=== PATIENT | male | born 1995 | race Caucasian/White ===

== ENCOUNTER 2020-04-16 07:06 | Outpatient (CLI) | payer OTHER ==
--- NOTE | 2020-04-16 16:04 | MRI Report ---
PROCEDURE: Knee RT W/O INDICATIONS: RT KNEE INSTABILITY TECHNIQUE: Noncontrast sagittal PD fast spin echo and T2 fast spin echo with fat saturation, sagittal 3-D gradie nt sequence with fat saturation; coronal T1 spin echo and PD fast spin echo with fat saturation, and axial PD fast spin echo with fat saturation through the knee. COMPARISON: None. FINDINGS: Image quality: There is magnetic susceptibly artifact limiting evaluation. Menisci: There is a focal radial tear along the free edge in the anterior horn of the lateral meniscu s. The medial meniscus appears intact. The meniscal root ligaments also appear intact. Cruciate ligaments: There are postsurgical changes consistent with prior instruction of the anterior cruciate ligament. The ACL graft appears intact. There is a small amount of intermediate signal inten sity soft tissue anterior to the ACL graft suggestive of arthrofibrosis. The posterior cruciate ligam ent appears intact. Medial structures: The medial collateral ligament appears intact. The semimembranosus tendon insert ions appear intact. Visualized portions of the pes anserinus tendons appear normal. No abnormal bur rubina fluid. Lateral structures: The fibular collateral ligament and biceps femoris tendon appear intact. The po pliteal tendon and the meniscofemoral ligaments appear intact. Anterior structures: The quadriceps tendon appears intact. There is postsurgical change within the p atella tendon along the midline consistent with prior graft harvesting. The patella tendon appears gr ossly intact otherwise. There is slight lateral tilt of the patella. No femoral trochlear dysplasia o r ventral trochlear prominence. No edema in the infrapatellar fat pad. Bones and cartilage: No bone marrow contusions or fractures. The cartilage of the medial and latera l femorotibial compartments, as well as the patellofemoral compartment, appears preserved in thicknes s. Joint space: There is a small joint effusion. No Carnes?s cyst. Normal appearing synovial plicae ar e incidentally noted. IMPRESSION: 1. Focal radial tear within the anterior horn of the lateral meniscus. 2. Postsurgical changes consistent with prior ACL reconstruction with intact appearance of the graft. 3. Intermediate signal intensity soft tissue anterior to the graft suggestive of arthrofibrosis. 4. Small joint effusion. Reviewed by: Kevin Flores MD on 04/16/2020 4:03 PM PST Approved by: Kevin Flores MD on 04/16/2020 4:03 PM PST Station ID: [id number]
== END 2020-04-16 07:07 | disposition home or self-care (01) ==
LOC: DI 07:06
PROVIDERS: ATTEND Orthopaedic Surgery
DX: S83.281A Other tear of lateral meniscus, current injury, right knee, initial encounter (principal); R93.6 Abnormal findings on diagnostic imaging of limbs; M25.461 Effusion, right knee

== ENCOUNTER 2020-05-01 07:35 | Day surgery (SDC) | payer OTHER ==
[~2020-05-01 07:35] MED LIST: LIDOCAINE-MPF 2% 5 ML VIAL ONE; PROPOFOL 200 MG/20 ML VIAL IVP ONE
[2020-05-01] MEDS ORDERED: KETOROLAC 30 MG/ML VIAL ONE (07:36)
[2020-05-01] MEDS ORDERED: DEXAMETHASONE 4 MG/ML VIAL ONE (07:36)
[2020-05-01] MEDS ORDERED: ONDANSETRON 4 MG/2 ML VIAL ONE (07:36)
[2020-05-01] MEDS ORDERED: LIDOCAINE 2%-EPI 1:100000 20 ML MDV ONE (07:52)
[2020-05-01] MEDS ORDERED: EPINEPHrine 1 MG/ML AMP ONE (07:52)
[2020-05-01] MEDS ORDERED: BUPIVACAINE 0.25% PF 30 ML VIAL ONE (07:52)
[2020-05-01] MEDS ORDERED: ceFAZolin 2 GM/50 ML 2 GM/50 ML BAG IV ONE (08:00)
[2020-05-01] MEDS ORDERED: LACTATED RINGERS 1,000 ML IV ONE ×2 (08:09→10:52)
--- NOTE | 2020-05-01 08:22 | ANESTHESIA ---
Pre-Anesthesia VS, & Labs - Diagnosis Right Knee Instability - Procedure Right Knee Arthroscopy, Tibial Screw Removal, Vital Signs: Temp Pulse Resp BP Pulse Ox 36.2 C L 57 L 16 116/67 100 05/01/20 08:05 05/01/20 08:05 05/01/20 08:05 05/01/20 08:05 05/01/20 08:05 Height: 5 ft 5 in Weight (kg): 70.31 kg Body Mass Index: 25.7 BMI Classification: Overweight - NPO >8 hours Home Medications and Allergies Home Medications: Ambulatory Orders No Known Home Medications 04/25/20 No Known Home Medications 04/25/20 Allergies/Adverse Reactions: Allergies Allergy/AdvReac Type Severity Reaction Status Date / Time No Known Drug Allergies Allergy Verified 04/25/20 15:58 Anes History & Medical History - Anesthetic History Anesthesia Complications: reports: No previous complications Family history of Anesthesia Complications: Denies Family history of Malignant Hyperthermia: Denies - Medical History Cardiovascular: reports: None Pulmonary: reports: None Gastrointestinal: reports: None Urinary: reports: None Neuro: reports: None Musculoskeletal: reports: Other Endocrine/Autoimmune: reports: None Blood Disorders: reports: None Skin: reports: None Smoking Status: Never smoker Psychosocial: reports: No issues indicated History of Cancer?: No - Surgical History Eyes Ears Nose Throat (EENT): Tonsil/Adenoidectomy Orthopedic: ACL reconstruction Exam General: Alert, Oriented x3, Cooperative, No acute distress Dental: WNL Mouth Openin Fingerbreadth Neck Mobility: Normal Mallampati classification: II Thyromental Distance: 4-6 cm Respiratory: Lungs clear, Normal breath sounds, No respiratory distress, No accessory muscle use Cardiovascular: Regular rate, Normal S1, Normal S2, No murmurs Mental/Cognitive Status: Alert/Oriented X3, Normal for patient Cognitive Status: Within normal limits Plan Anesthesia Type: General Consent for Procedure(s) Verified and Reviewed: Yes Code Status: Attempt Resuscitation ASA classification: 1-Healthy patient Is this case an emergency?: No
[2020-05-01] MEDS ORDERED: METOCLOPRAMIDE 10 MG/2 ML VIAL IVP PRN (08:23)
[2020-05-01] MEDS ORDERED: ATROPINE ABBOJECT 1 MG/10 ML SYRINGE IVP PRN (08:23)
[2020-05-01] MEDS ORDERED: HYDROmorphone 0.5 MG/0.5 ML SYRINGE IVP PRN ×2 (08:23→08:36)
[2020-05-01] MEDS ORDERED: ePHEDrine 50 MG/ML VIAL IVP PRN (08:23)
[2020-05-01] MEDS ORDERED: NALOXONE 0.4 MG/ML VIAL IVP PRN (08:23)
[2020-05-01] MEDS ORDERED: ONDANSETRON 4 MG/2 ML VIAL IVP PRN ×2 (08:23→10:41)
[2020-05-01] MEDS ORDERED: fentaNYL 100 MCG/2 ML VIAL IVP PRN (08:23)
[2020-05-01] MEDS ORDERED: MORPHINE 2 MG/ML CARPUJECT IVP PRN (08:23)
[2020-05-01] MEDS ORDERED: MIDAZOLAM 2 MG/2 ML VIAL ONE (08:29)
[2020-05-01] MEDS ORDERED: fentaNYL 100 MCG/2 ML VIAL ONE ×2 (08:29→10:29)
[2020-05-01] MEDS ORDERED: LACTATED RINGERS 1,000 ML IV SCH (09:00)
[2020-05-01] MEDS ORDERED: BUPIVACAINE 0.25% PF 30 ML VIAL SUBQ ONE (09:08)
[2020-05-01] MEDS ORDERED: EPINEPHrine 1 MG/ML AMP IR ONE (09:08)
[2020-05-01] MEDS ORDERED: oxyCODONE 5 MG TABLET PO PRN (10:41)
--- NOTE | 2020-05-01 10:57 | OPERATIVE REPORT ---
Operative Report - Other Other Information/Narrative: Date of Surgery: 01 May 2020 Pre-Op Diagnosis: Right knee instability. right lateral meniscus tear Procedure: right knee scope with lateral meniscus debridement. Open tibia screw removal and bone grafting Postop Diagnosis: same Primary Surgeon: Angel Grace Secondary Surgeon: Yoan Angel Complications: None Tourniquet Time: 93 EBL: 30 Indication For Surgery: 25M with a prior ACLR with [facility]alta in 2013. He was doing well until 1 year ago when he started to have pain and instability. Workup revealed a lateral meniscus tear and an ACL graft that looked intact. The plan was to prepare the knee for a single stage ACL revision and treat the meniscus as needed. The risks, benefits, and alternatives were discussed. Risks include pain, bleeding, infection, damage to nearby structures and cartilage, lack of symptom relief, need for further surgery, DVT, PE, stroke, and . Written consent was obtained. Examination Under Anesthesia: ROM equal to the contralateral side. Stable dial at 30 & 90 degrees. Stable to varus and valgus stressing at 0 & 30 degrees. 2A Frances. Normal Pivot shift, potentially mild glide. No mechanical sensation Arthroscopic Findings: Loose bodies - None Synovium - Normal Patella cartilage - Normal Trochlear cartilage - Normal Medial femoral condyle cartilage - Normal Medial tibial plateau cartilage - Normal Medial meniscus - Normal Anterior cruciate ligament - Graft was still intact, with tunnels in good position. There was a small area anteriorly where a portion of the graft had delaminated. Posterior cruciate ligament - Normal Lateral femoral condyle cartilage - Grade 1 softening Lateral tibial plateau cartilage - Full thickness lesion posterly under the posterior horn of the meniscus. The remainder of the cartilage was largely intact Lateral meniscus - Parrot beak tear of the anterior horn with retraction of the portion attached to the anterior root. The portion of the meniscus attached to the intermeniscal ligament remained intact. The posterior horn and body of the meniscus was intact. The unstable portion of meniscus were excised. Procedure in Detail: The patient was met in the pre-operative hold area on the day of the procedure. The operative extremity was signed and questions were answered. The patient was brought to the operating room and a general anesthetic was administered. Supine position was used and bony prominences were padded. An examination under anesthesia was performed. Standard prepping and draping was performed. A time out confirmed patient identification, laterality, procedure, allergies, antibiotics, and images. An Esmarch was used to exsanguinate the limb and the tourniquet was elevated to 250 mmHg. A standard diagnostic arthroscopy of the knee was performed through anterolateral and anteromedial portal sites. The anteromedial portal was created under direct visualization after localizing with a spinal needle. The findings can be found above. I then proceeded to use a shaver and biter to excise the anterior root and anterior horn of the lateral meniscus. I also trimmed the body to a stable border. The tibial cartilage lesion did not require any treatment. Final images were taken and all arthroscopic fluid and instruments were removed from the knee. The incisions were closed with buried monocryl sutures. I then opened the inferior portion of the prior anterior incision. Sharp dissection was carried down to the tunnel location and the screw was identified. It was cleared of overlying bone and removed without issue. The bone plug of the graft was still stable and the knee remained stable. I then used a rasp and curette to freshen the edges of the screw hole. I then impacted cancellous bone chips into the void until it was full. This incision was then irrigated and closed in a layered fashioned. Steri strips were applied. 10cc of 0.25% Marcaine without epinephrine was injected near the portal sites and medial incision. A sterile dressing and compression stocking was placed. The patient was awakened and transferred to recovery in stable condition.
--- NOTE | 2020-05-01 11:48 | ANESTHESIA POST OP EVALUATION ---
Anesthesia Post Eval - Post Anesthesia Eval Vitals: Last Vital Signs Temp 36.2 C L 05/01/20 11:11 Pulse 82 05/01/20 11:31 Resp 12 05/01/20 11:31 BP 113/53 L 05/01/20 11:31 Pulse Ox 98 05/01/20 11:31 CV Function Including HR & BP: positive: Stable Pain Control: positive: Satisfactory Nausea & Vomiting: positive: Negative Mental Status: positive: Baseline Respiratory Status: Airway Patent Hydration Status: Satisfactory Anesthesia Complications: positive: None
[2020-05-01 12:32] VITALS: BP 112/61
== END 2020-05-01 07:36 | disposition home or self-care (01) ==
LOC: SDS 07:35
PROVIDERS: ATTEND Orthopaedic Surgery
DX: S83.281A Other tear of lateral meniscus, current injury, right knee, initial encounter (principal); M25.361 Other instability, right knee; E66.3 Overweight; Z68.25 Body mass index [BMI] 25.0-25.9, adult
CPT/HCPCS: 20680; 27899; 29881; C1713; J0690; J7120